=== PATIENT | male | born 1970 | race Caucasian/White ===

== ENCOUNTER 2020-02-21 00:03 | Inpatient (IN) | payer MEDICARE ==
[~2020-02-21] VITALS: Ht 167.6 cm; Wt 53.5 kg
[2020-02-22] VITALS (7 sets, daily range): BP systolic 118–143; BP diastolic 64–79; PULSE 96–105; TEMP 97.6–98.7
--- NOTE | 2020-02-22 01:20 | NUR ---
PT ADMITTED PER STRETCHER WITH EMS FROM [facility]. A&OX4. NG HOOKED UP TO INTERMITTENT SUTION. LT AV HIRAM NOTED. NOTIFIED DR FLEMING OF ADMISSION. NEW ORDERS. DURING ADMISSION PROCEESS PT HAVING ABRUPT OUTBURST OF ANGER. PT ANGRY THAT ALL HOMEM MEDICATIONS GO TO PHARMACY- NOTIFIED HOUSE SUPERVISDOR TO COME TALK TO PT REGARDING HOSPITAL POLICY. AND AGAIN WHEN ASKING HEALTH HISTORY QUESTIONS. COMPLETED ADMISSION PROCESS. ALLOWED PT TO CALM. PT INSTRUCTED IMAGERY INTELLIGENCE LIGHT AND BED CONTROLS. DENIES QUESTIONS AND NOW VERY POLITE. CALL LIGHT IN REACH.
[2020-02-22] MEDS ORDERED: TYLENOL W/COD1 UDTAB PO (02:49)
[2020-02-22] MEDS ORDERED: NORVASC 10MG10 MG PO (02:51)
[2020-02-22] MEDS ORDERED: PROTONIX20 MG PO (02:52)
[2020-02-22] MEDS ORDERED: RENVELA800 MG PO (02:55)
[2020-02-22] MEDS ORDERED: [UNRECOGNIZED DRUG - CODE] PO (02:59)
[2020-02-22] MEDS ORDERED: CALCITRIOL PO (03:00)
[2020-02-22] MEDS ORDERED: ZOFRAN 4MG T4 MG/TAB PO (03:02)
[2020-02-22] MEDS ORDERED: FLEXERIL 1010 MG/TAB PO (03:04)
[2020-02-22] MEDS ORDERED: REGLAN 10MG10 MG/TAB PO (03:07)
[2020-02-22] MEDS ORDERED: NOVOLOG FLEX100 U/ML SQ (03:27)
[2020-02-22] MEDS ORDERED: TRESIBA100 UNIT/1 SQ (03:39)
--- NOTE | 2020-02-22 03:41 | NUR ---
PT YELLING AT STAFF WHEN PROVIDING CARES. ADVERTISING SALES ASSISTANT AWARE. REFUSED ACCUCHECK. POSSIBLY HYPOGLYCEMIC HE WAS 51 AT [facility] AND WAS TREATED WITH D50. NOTIFIED LAB TO COME DRAW EARLY.
--- NOTE | 2020-02-22 03:54 | NUR ---
GAVE DILAUDID IV FOR ABD PAIN. LAB HERE. PT AGREEABLE FOR LAB DRAWM.
[2020-02-22 04:02] LABS: BASO % 0.3 % (0.0-2.0); EOS # 0.2 (0.0-0.7); EOS % 1.7 % (0-4.0); GRAN # 6.7 (1.4-6.5); GRAN % 73.1 % (42.2-75.2); HEMOGLOBIN 11.1 g/dl (13.5-18.0); LYMPH # 1.2 (1.2-3.4); LYMPH % 12.7 % (20.0-51.0); MEAN CELL VOLUME 96 fl (80.0-100.0); MEAN CORPUSCULAR HEMOGLOBIN 31 pg (27.0-31.0); MEAN CORPUSCULAR HGB CONC 32 g/dl (33.0-37.0); MEAN PLATELET VOLUME 10.1 fl (7.4-10.4); MONO # 1.1 (0.1-0.6); MONO % 11.7 % (1.7-9.3); PLATELET COUNT 226 K/mm3 (130-400); RED BLOOD COUNT 3.64 M/mm3 (4.20-5.60); REDCELL DISTRIBUTION WIDTH-CV 14.7 % (11.5-14.5)
[2020-02-22 04:10] LABS: ALBUMIN 3.4 gm/dL (3.5-5.0); CALCIUM 8.7 mg/dL (8.4-10.2); CREATININE, serum 10.09 (0.66-1.25); HEMATOCRIT 34.8 % (42.0-52.0); PHOSPHOROUS 4.7 mg/dL (2.5-4.5); POTASSIUM 5.4 mmol/L (3.4-5.0)
--- NOTE | 2020-02-22 04:40 | NUR ---
BLOOD GLUCOSE 50. IMPLEMENTED HYPOGLYCEMIA PROTOCOL. GAVE D50 IV PER PROTOCOL. PT CALM AND COOPERATIVE AT THIS TIME. ABD PAIN IMPROVED FROM LEVEL 6 TO LEVEL 2/10.
--- NOTE | 2020-02-22 05:27 | NUR ---
BLOOD SUGAR 94 NOW. PT SLEEPY. RELAXED.
--- NOTE | 2020-02-22 07:09 | NUR ---
PT REPORTED BM BUT FLUSHED. INSTRUCTED TO CALL NURSE AFTER BM TO DOCUMENT.
--- NOTE | 2020-02-22 08:00 | NUR ---
Patient resting in bed at this time, patient is alert and oriented, answers questions appropriately. NG tube to LIS, approximately 400 ml of blue-green contents in cannister. Patient states that nausea is well controlled and states that he had a soft formed bowel movement last night but flushed it before it was seen by staff. Informed patient to alert staff if he had another, patient verbalized understanding. Call light within reach.
--- NOTE | 2020-02-22 18:25 | NUR ---
Patient resting in bed at this time. Patient is alert and oriented, answeres questions appropriately. NG tube in place to right nare, clamped per order. Patient has tolerated clear liquids well, reports some nausea this evening but has not had emesis. Patient has had two bowel movements this afternoon, they are soft formed and light brown. Blood sugar was low once today right before diet was changed to clears. Gave patient some apple juice and full sugar jello, glucose came up and has maintained since then. Masoud denies needs at this time, call light within reach.
--- NOTE | 2020-02-22 21:30 | NUR ---
PT RESTING IN BED. REPORTS NO NAUSEA OR VOMITING AFTER EATING SOFT DINNER. HAS NGT TO RIGHT NARE, CLAMPED. UP TO BATHROOM, NO STOOL. BACK TO BED, SCDS PLACED ON PATIENT.
--- NOTE | 2020-02-23 00:27 | NUR ---
GIVEN NOVOLOG INSULIN 4 UNITS FOR BS OF 300. PT IN BED, DOZING.
[2020-02-23 04:00] VITALS: BP 121/72; PULSE 96; TEMP 98
--- NOTE | 2020-02-23 06:00 | NUR ---
HAS HAD NGT CLAMPED THIS SHIFT, DENIES N/V. TAKES PO PROTONIX AT THIS TIME.
[2020-02-23 07:15] LABS: BASO % 0.5 % (0.0-2.0); EOS # 0.3 (0.0-0.7); EOS % 3.4 % (0-4.0); GRAN # 5.9 (1.4-6.5); GRAN % 70.8 % (42.2-75.2); HEMOGLOBIN 10.7 g/dl (13.5-18.0); LYMPH # 1.2 (1.2-3.4); LYMPH % 14.4 % (20.0-51.0); MEAN CELL VOLUME 95 fl (80.0-100.0); MEAN CORPUSCULAR HEMOGLOBIN 29 pg (27.0-31.0); MEAN CORPUSCULAR HGB CONC 31 g/dl (33.0-37.0); MEAN PLATELET VOLUME 10.1 fl (7.4-10.4); MONO # 0.9 (0.1-0.6); MONO % 10.2 % (1.7-9.3); PLATELET COUNT 246 K/mm3 (130-400); RED BLOOD COUNT 3.64 M/mm3 (4.20-5.60); REDCELL DISTRIBUTION WIDTH-CV 14.6 % (11.5-14.5)
[2020-02-23 07:25] LABS: HEMATOCRIT 34.5 % (42.0-52.0)
[2020-02-23 07:39] LABS: ALBUMIN 3.6 gm/dL (3.5-5.0); CALCIUM 8.6 mg/dL (8.4-10.2); CREATININE, serum 12.96 (0.66-1.25); PHOSPHOROUS 5.5 mg/dL (2.5-4.5); POTASSIUM 5.6 mmol/L (3.4-5.0)
[2020-02-23 07:42] VITALS: BP 143/83; PULSE 102; TEMP 98.3
--- NOTE | 2020-02-23 08:05 | NUR ---
Patient ambulating in halls with PT. Steady gait.
--- NOTE | 2020-02-23 08:24 | NUR ---
Patient in bed resting. Alert and oriented x 3. Assessment complete. Denies pain at this time. Fistula to left forarm with bruit and thrill present. NG tube clamped, patient tolerating diet. Denies further needs at this time.
--- NOTE | 2020-02-23 09:52 | NUR ---
Patient called out to nurses station, states that he feels like his NG tube is out of place, feels like it is at the back of his throat making him gag. Patient had emisis, pulled NG tube, patient had appoximately 5 cm of NG tube in place. Will continue to monitor.
--- NOTE | 2020-02-23 10:45 | NUR ---
KRISTIN met with the patient to discuss discharge plan. The patient lives alone in [place]. He states that his sister, Nelly Gardner (ph#[phone]), also lives in [place]. He reports independence with ADLs and does not have any DME. The patien's PCP is Dr. Albert Judge and he receives his medications at [facility]. He reports no difficulties obtaining his meds. The patient does not have advanced directives in EMR, but he states that he does have a DPOA-HC completed and that his sister, Nelly, is his DPOA-HC. KRISTIN contacted Dr. Judge's office to inquire if they have a copy of the document. The dental receptionist reports that they do and will fax the document to the surgical unit. The patient plans to return home upon discharge. SW to continue to follow as needed.
--- NOTE | 2020-02-23 11:45 | NUR ---
Dr. Loyola in to see leticia.
--- NOTE | 2020-02-23 12:22 | NUR ---
Patient to dialysis by wheelchair. Denies further needs at this time
--- NOTE | 2020-02-23 12:24 | NUR ---
First visit from the social security assessor. No needs right now.
[2020-02-23 12:39] VITALS: BP 159/88; PULSE 100; TEMP 98.1
--- NOTE | 2020-02-23 14:47 | NUR ---
Dialysis nurse called, patient states that he is not feeling like himself in dialysis. VSS. Accucheck at 120. Denies further needs, will continue to monitor.
--- NOTE | 2020-02-23 15:59 | NUR ---
Patient back from dialysis. Up to restroom, had a small BM. Denies further needs at this time.
--- NOTE | 2020-02-23 16:07 | NUR ---
The patient informed KRISTIN that he applied for Medicaid about a week ago with the delinquency prevention social worker at the dialysis center. KRISTIN notified Financial Counselor, Mikayla. Mikayla reports that she will need the Release Forms signed for her to be able to check the status of the application. KRISTIN informed the patient and presented him with the Release forms for Medicaid. The patient signed the forms. KRISTIN emailed the signed forms to Mikayla.
[2020-02-23 17:00] VITALS: BP 134/71; PULSE 100; TEMP 98.2
[2020-02-23 20:51] VITALS: BP 141/73; PULSE 100; TEMP 98.3
--- NOTE | 2020-02-23 22:51 | NUR ---
PT COMPLAINS OF BACK PAIN, MEDICATED WITH ES TYLENOL 500MG PO AND FLEXERIL 10MG PO AT THIS TIME. ALSO GIVEN ZOFRAN IV FOR MILD NAUSEA. SL TO RIGHT AC WITHOUT REDNESS OR SWELLING. UP INDEPENDENTLY IN ROOM. DENIES BM SO FAR THIS SHIFT.
[2020-02-23 23:55] VITALS: BP 142/76; PULSE 103; TEMP 98.1
[2020-02-24 03:33] VITALS: BP 105/65; PULSE 97; TEMP 97.8
[2020-02-24 04:26] VITALS: BP 130/75; PULSE 80; TEMP 98.2
--- NOTE | 2020-02-24 06:00 | NUR ---
SITTING AT EDGE OF BED, REPORTS NO EMESIS OR STOOL THIS SHIFT.
--- NOTE | 2020-02-24 07:30 | NUR ---
Patient resting in bedside recliner at this time. Patient is alert and oriented, answers questions appropriately. Patient voided approximately 150 ml of bloody urine. Patient reports burning with urination and states he feels that it is hard to void. Encouraged patient to drink plenty of fluids and discussed the fact that urination may take time since his chopra was just removed. Patient verbalized understanding. Denies further needs at this time, call light within reach.
[2020-02-24 07:40] LABS: BASO % 0.5 % (0.0-2.0); EOS # 0.2 (0.0-0.7); EOS % 2.6 % (0-4.0); GRAN # 5.5 (1.4-6.5); GRAN % 69.2 % (42.2-75.2); LYMPH # 1.2 (1.2-3.4); LYMPH % 15.6 % (20.0-51.0); MEAN CELL VOLUME 95 fl (80.0-100.0); MEAN CORPUSCULAR HGB CONC 31 g/dl (33.0-37.0); MEAN PLATELET VOLUME 10.2 fl (7.4-10.4); MONO # 0.9 (0.1-0.6); MONO % 11.5 % (1.7-9.3); PLATELET COUNT 263 K/mm3 (130-400); RED BLOOD COUNT 3.35 M/mm3 (4.20-5.60); REDCELL DISTRIBUTION WIDTH-CV 14.5 % (11.5-14.5)
[2020-02-24 07:47] LABS: ALBUMIN 3.3 gm/dL (3.5-5.0); CALCIUM 8.3 mg/dL (8.4-10.2); CREATININE, serum 8.23 (0.66-1.25); PHOSPHOROUS 4.7 mg/dL (2.5-4.5); POTASSIUM 5.1 mmol/L (3.4-5.0)
[2020-02-24 07:54] LABS: HEMATOCRIT 31.7 % (42.0-52.0); HEMOGLOBIN 9.9 g/dl (13.5-18.0); MEAN CORPUSCULAR HEMOGLOBIN 30 pg (27.0-31.0)
--- NOTE | 2020-02-24 08:00 | NUR ---
Patient resting in bed at this time, rouses easily. Patient denies pain or nausea at this time, breakfast just arrived and assisted patient in getting it set up. Patient denies further needs at this time. Call light within reach.
[2020-02-24 11:50] VITALS: BP 152/80; PULSE 103; TEMP 98
[2020-02-24 17:10] VITALS: BP 151/81; PULSE 99; TEMP 98
--- NOTE | 2020-02-24 18:42 | NUR ---
Patient resting in bed, sister at bedside. Patient is alert and oriented, answers questions appropriately. Capillary blood glucose resulted at 505, ordered lab blood glucose test per protocol and reported elevated blood glucose to Dr. Loyola, olegario BUSH to re start home insulin and continue with moderate sliding scale. Called pharmacy for appropriate substitution for home insulin and entered medication orders. Administered insulin per orders. After leaving the room patient began vomiting, there was a moderate amount of emesis in the basin that appeared to be undigested food. Administered PRN zofran per orders. Patient denies further needs at this time, call light within reach.
[2020-02-24 19:20] VITALS: BP 138/72; PULSE 102; TEMP 97.5
--- NOTE | 2020-02-24 21:30 | NUR ---
ACCUCHECK 570. NOTIFIED LAB FOR BLOOD GLUCOSE.
--- NOTE | 2020-02-24 21:44 | NUR ---
LAB HERE TO DRAW BLOOD. PT ALERT ORIENTED AND COOPERATIVE. GAVE 10 UNITS NOVOLOG INSULIN. AWAITING LAB RESULTS THEN WILL NOTIFY DR FLEMING. PT DENEIS ANY NAUSEA. C/O FEELING "YUCKY". WILL NOT SPECIFY. CALL LIGHT IN REACH. HR CONTINUED TACHY AT 102.
--- NOTE | 2020-02-24 22:10 | NUR ---
NOTIFIED DR FLEMING OF HYPERGLYCEMIC EPISODE. CONTINUE PT WOULD DO AT HOME.
--- NOTE | 2020-02-24 22:24 | NUR ---
SPOKE WITH PT. PT WANTS TO WAIT TILL AM TO SEE IF BLOOD SUGAR HAS DECREASED SINCE HE RECEIVED HIS LEVEMIER EARLIER LAST SHIFT AND RECENT NOVOLOG 10UNITS. INSTRUCTED PT TO NOTIFY STAFF IF HE HAS INCRESED S/S HYPERGLYCEMIA THROUGH THE NIGHT. PT AGREED.
[2020-02-24 23:29] VITALS: BP 131/73; PULSE 87; TEMP 98.2
--- NOTE | 2020-02-25 02:45 | NUR ---
PT SLEEPING. NO DISTRESS NOTED.
[2020-02-25 05:24] VITALS: BP 112/71; PULSE 89; TEMP 98.2
[2020-02-25 07:43] LABS: BASO # 0.1 (0.0-0.2); BASO % 0.6 % (0.0-2.0); EOS # 0.2 (0.0-0.7); EOS % 2.5 % (0-4.0); GRAN # 5.7 (1.4-6.5); GRAN % 66.3 % (42.2-75.2); HEMOGLOBIN 10.5 g/dl (13.5-18.0); LYMPH # 1.6 (1.2-3.4); LYMPH % 18.7 % (20.0-51.0); MEAN CELL VOLUME 94 fl (80.0-100.0); MEAN CORPUSCULAR HEMOGLOBIN 30 pg (27.0-31.0); MEAN CORPUSCULAR HGB CONC 31 g/dl (33.0-37.0); MONO # 0.9 (0.1-0.6); MONO % 10.7 % (1.7-9.3); PLATELET COUNT 262 K/mm3 (130-400); RED BLOOD COUNT 3.56 M/mm3 (4.20-5.60); REDCELL DISTRIBUTION WIDTH-CV 14.6 % (11.5-14.5)
[2020-02-25 07:49] LABS: HEMATOCRIT 33.4 % (42.0-52.0)
[2020-02-25 07:57] LABS: ALBUMIN 3.6 gm/dL (3.5-5.0); CALCIUM 8.6 mg/dL (8.4-10.2); CREATININE, serum 10.57 (0.66-1.25); PHOSPHOROUS 4.1 mg/dL (2.5-4.5); POTASSIUM 4.4 mmol/L (3.4-5.0)
[2020-02-25 08:00] VITALS: BP 136/75; PULSE 87; TEMP 97.6
--- NOTE | 2020-02-25 08:15 | NUR ---
PATIENT MORNING ASSESSMENT COMPLETED AQND AM MEDICATIONS GIVEN. PATIENT DENIES ANY PAIN. PATIENT BOWEL SOUNDS ACTIVE ALL FOUR QUADRANTS. PATIENT TOLERATING DIET WITHOUT DIFFICULTIES. PATIENT PASSING FLATUS. PATIENT REPORTS HAVING BOWEL MOVEMENTS, BUT NONE TODAY THUS FAR. VSS. PATIENT AMBULATED WITH NURSING STAFF TO DIALYSIS. WILL WAIT FOR PATIENT RETURN BACK FROM DIALYSIS TO ROOM 345.
[2020-02-25] MEDS ORDERED: NEURONTIN100 MG/CAP PO (10:53)
[2020-02-25 11:22] VITALS: BP 139/76; PULSE 84; TEMP 97.9
--- NOTE | 2020-02-25 11:55 | NUR ---
PATIENT AMBULATED BACK TO ROOM 345 WITH THIS NURSE FROM DIALYSIS. PATIENT DENIES PAIN AT THIS TIME. DIALYSIS NURSE REPORTS THAT THE PATIENT HAS BEEN PASSING ALOT OF GAS DURING HIS TREATMENT. PATIENT AFTERNOON MEDICATIONS GIVEN. PATIENT EATING LUNCH TRAY. PATIENT DENIES ANY NEEDS AT THIS TIME.
--- NOTE | 2020-02-25 12:40 | NUR ---
PATIENTS RIGHT AC INT DISCONTINUED PER PENDING DISCHARGE. TIP INTACT. PATIENT TOLERATED WELL. DISCHARGE INSTRUCTIONS REVIEWED WITH PATIENT. QUESTIONS SOUGHT AND ANSWERED. PATIENT PERSONAL BELONGINGS GATHERED. MEDICATIONS IN PHARMACY RETURNED TO PATIENT. AWAITING RIDE FOR DISCHARGE.
--- NOTE | 2020-02-25 13:00 | NUR ---
PATIENT TAKEN TO PERSONAL VEHICLE VIA WHEELCHAIR BY SURGICAL STAFF. PATIENT DISCHARGED.
== END 2020-02-25 13:00 | disposition home or self-care (01) | DRG 388 ==
LOC: SURG 00:03
PROVIDERS: ADMIT Internal Medicine Nephrology
PROC: 5A1D70Z Performance of Urinary Filtration, Intermittent, Less than 6 Hours Per Day (ICD-10-PCS; principal; 2020-02-22)
DX: K56.600 Partial intestinal obstruction, unspecified as to cause (principal); N18.6 End stage renal disease; I12.0 Hypertensive chronic kidney disease with stage 5 chronic kidney disease or end stage renal disease; E11.22 Type 2 diabetes mellitus with diabetic chronic kidney disease; M54.9 Dorsalgia, unspecified; E80.6 Other disorders of bilirubin metabolism; E83.39 Other disorders of phosphorus metabolism; D63.1 Anemia in chronic kidney disease; E78.5 Hyperlipidemia, unspecified
CPT/HCPCS: J1170; J1644; J1815; J2405; J7030; Q5105

== ENCOUNTER 2020-04-29 19:46 | Emergency (ER) | payer MEDICARE ==
[~2020-04-29] VITALS: Ht 167.6 cm; Wt 58.7 kg
[~2020-04-29 19:46] MED LIST: CALCITRIOL PO; FLEXERIL 1010 MG/TAB PO; NEURONTIN100 MG/CAP PO; NORVASC 10MG10 MG PO; NOVOLOG FLEX100 U/ML SQ; PROTONIX20 MG PO; REGLAN 10MG10 MG/TAB PO; RENVELA800 MG PO; TRESIBA100 UNIT/1 SQ; TYLENOL W/COD1 UDTAB PO; ZOFRAN 4MG T4 MG/TAB PO; [UNRECOGNIZED DRUG - CODE] PO
[2020-04-29 20:17] LABS: BASO % 0.7 % (0.0-2.0); EOS # 0.2 (0.0-0.7); GRAN # 3.6 (1.4-6.5); GRAN % 59.3 % (42.2-75.2); HEMATOCRIT 41.8 % (42.0-52.0); HEMOGLOBIN 13.5 g/dl (13.5-18.0); LYMPH # 1.4 (1.2-3.4); LYMPH % 23.6 % (20.0-51.0); MEAN CELL VOLUME 96 fl (80.0-100.0); MEAN CORPUSCULAR HEMOGLOBIN 31 pg (27.0-31.0); MEAN CORPUSCULAR HGB CONC 32 g/dl (33.0-37.0); MEAN PLATELET VOLUME 9.4 fl (7.4-10.4); MONO # 0.8 (0.1-0.6); MONO % 12.3 % (1.7-9.3); PLATELET COUNT 161 K/mm3 (130-400); RED BLOOD COUNT 4.34 M/mm3 (4.20-5.60)
[2020-04-29 20:28] LABS: ALANINE AMINOTRANSFERASE 25 U/L (4-49); ALBUMIN 4.3 gm/dL (3.5-5.0); ALKALINE PHOSPHATASE 75 U/L (50-136); ANION GAP 8 mmol/L (7-16); AST,SGOT 35 U/L (15-37); BILIRUBIN,TOTAL 0.7 mg/dL (0.0-1.0); BLOOD UREA NITROGEN 14 mg/dL (9-20); CALCIUM 8.6 mg/dL (8.4-10.2); CARBON DIOXIDE 38 mmol/L (22-30); CHLORIDE 91 mmol/L (98-107); CREATININE, serum 3.42 (0.66-1.25); GLUCOSE 120 mg/dL (74-106); LIPASE 295 U/L (23-300); MAGNESIUM 2.1 mg/dL (1.6-2.3); PHOSPHOROUS 4.3 mg/dL (2.5-4.5); POTASSIUM 3.6 mmol/L (3.4-5.0); SODIUM 136 mmol/L (137-145); TOTAL PROTEIN 7.4 gm/dL (6.4-8.2)
[2020-04-29 20:33] LABS: ALCOHOL(ethanol),MEDICAL < 10 mg/dL
[2020-04-29 22:03] VITALS: BP 136/78; PULSE 76; TEMP 97.6
== END 2020-04-29 22:28 | disposition home or self-care (01) ==
LOC: COL.ER 19:46
PROVIDERS: Emergency Medicine
DX: E16.2 Hypoglycemia, unspecified (principal); E11.9 Type 2 diabetes mellitus without complications; N18.6 End stage renal disease; Z99.2 Dependence on renal dialysis; Z79.4 Long term (current) use of insulin

== ENCOUNTER 2021-01-19 10:22 | Outpatient (CLI) | payer MEDICARE, MEDICAID ==
[~2021-01-19] VITALS: Ht 167.7 cm; Wt 60.5 kg
[2021-01-19] VITALS (9 sets, daily range): BP systolic 167–202; BP diastolic 78–95; PULSE 68–74; TEMP 98.1
[2021-01-19] MEDS ORDERED: RENVELA800 MG PO (11:10)
[2021-01-19] MEDS ORDERED: TAB-A-VITE W/IR1 TAB PO (11:11)
[2021-01-19] MEDS ORDERED: NEURONTIN100 MG/CAP PO (11:11)
[2021-01-19] MEDS ORDERED: PROTONIX20 MG PO (11:12)
[2021-01-19] MEDS ORDERED: LEVEMIR100 U/ML SQ (11:16)
--- NOTE | 2021-01-19 13:32 | NUR ---
SEE MERGE FOR ALL MEDICATION ADMINISTRATION TIMES, INTRA AND POST SEDATION ASSESSMENTS
--- NOTE | 2021-01-19 16:07 | NUR ---
DC instructions reviewed with pt and daughter. Both express understanding. INT DC'd with catheter intact. Pt steady on feet. He's tolerated PO without issue. Assisted out to sister's car by wheelchair.
== END 2021-01-19 16:22 | disposition home or self-care (01) ==
LOC: COL.CAR 10:22
DX: T82.898A Other specified complication of vascular prosthetic devices, implants and grafts, initial encounter (principal); M79.602 Pain in left arm; N18.6 End stage renal disease; I13.11 Hypertensive heart and chronic kidney disease without heart failure, with stage 5 chronic kidney disease, or end stage renal disease; E11.22 Type 2 diabetes mellitus with diabetic chronic kidney disease; F17.200 Nicotine dependence, unspecified, uncomplicated; Z79.4 Long term (current) use of insulin; Z79.899 Other long term (current) drug therapy; Z99.2 Dependence on renal dialysis; Z20.822 Contact with and (suspected) exposure to COVID-19; Z79.891 Long term (current) use of opiate analgesic
CPT/HCPCS: C1769; J1644; J2250; J3010; Q9967

== ENCOUNTER 2022-02-05 00:20 | Emergency (ER) | payer MEDICARE, MEDICAID ==
[~2022-02-05] VITALS: Ht 167.6 cm; Wt 58.8 kg
[~2022-02-05 00:20] MED LIST changes: +LEVEMIR100 U/ML SQ; +TAB-A-VITE W/IR1 TAB PO
[2022-02-05 00:27] VITALS: TEMP 98.1
[2022-02-05 01:02] LABS: BASO % 0.3 % (0.0-2.0); EOS # 0.2 K/mm3 (0.0-0.7); EOS % 2.5 % (0.0-4.0); GRAN # 5.9 K/mm3 (1.4-6.5); GRAN % 73.9 % (42.2-75.2); LYMPH # 1.3 K/mm3 (1.2-3.4); LYMPH % 15.8 % (20.0-51.0); MEAN CELL VOLUME 101 fl (80.0-100.0); MEAN CORPUSCULAR HGB CONC 32 g/dl (33.0-37.0); MEAN PLATELET VOLUME 10.3 fl (7.4-10.4); MONO # 0.6 K/mm3 (0.1-0.6); MONO % 6.9 % (1.7-9.3); PLATELET COUNT 172 K/mm3 (130-400); RED BLOOD COUNT 2.76 M/mm3 (4.20-5.60); REDCELL DISTRIBUTION WIDTH-CV 13.3 % (11.5-14.5)
[2022-02-05 01:03] LABS: HEMATOCRIT 27.8 % (42.0-52.0); MEAN CORPUSCULAR HEMOGLOBIN 33 pg (27-31)
[2022-02-05 01:21] LABS: ALBUMIN 3.5 gm/dL (3.5-5.0); BILIRUBIN,TOTAL 0.5 mg/dL (0.2-1.2); C-REACTIVE PROTEIN 0.25 mg/dL (0.00-0.50); CALCIUM 9.2 mg/dL (8.4-10.2); CREATININE, serum 10.62 mg/dL (0.72-1.25); POTASSIUM 5.7 mmol/L (3.5-4.5); TOTAL PROTEIN 6.7 gm/dL (6.2-8.1)
[2022-02-05 04:03] LABS: CALCIUM 9.4 mg/dL (8.4-10.2); CREATININE, serum 10.78 mg/dL (0.72-1.25)
[2022-02-05 07:11] VITALS: BP 170/99; PULSE 95
== END 2022-02-05 07:11 | disposition home or self-care (01) ==
LOC: COL.ER 00:20
PROVIDERS: Emergency Medicine
DX: E10.22 Type 1 diabetes mellitus with diabetic chronic kidney disease (principal); N18.6 End stage renal disease; K59.00 Constipation, unspecified; E87.70 Fluid overload, unspecified; R09.02 Hypoxemia; D63.1 Anemia in chronic kidney disease; E10.41 Type 1 diabetes mellitus with diabetic mononeuropathy; E10.43 Type 1 diabetes mellitus with diabetic autonomic (poly)neuropathy; K31.84 Gastroparesis; F17.200 Nicotine dependence, unspecified, uncomplicated; Z99.2 Dependence on renal dialysis
CPT/HCPCS: J1815; J1940; J7040; Q9967